=== PATIENT | female | born 1995 | race Caucasian/White ===

== ENCOUNTER 2024-12-06 13:39 | Outpatient (CLI) | payer OTHER, SELFPAY ==
[2024-12-06 16:49] LABS: Coronavirus 19, PCR Not Detected (NotDetected); Influenza A, PCR Not Detected (NotDetected); Influenza B, PCR Not Detected (NotDetected)
== END 2024-12-06 23:59 | disposition home or self-care (01) ==
LOC: LAB.DROPOF 12-07 11:12
PROVIDERS: PCP Nurse Practitioner Family; Visit Provider Nurse Practitioner Family
DX: R68.83 Chills (without fever) (principal); R51.9 Headache, unspecified
CPT/HCPCS: 87631